=== PATIENT | male | born 1990 | race Caucasian/White ===

== ENCOUNTER 2017-02-03 18:57 | Emergency (ER) | payer SELFPAY ==
[2017-02-03] MEDS ORDERED: IPRATROPIUM-ALBUTEROL 3 ML NEB INHALATION STA (19:47)
--- NOTE | 2017-02-03 19:52 | ED ---
General Adult HPI - General Chief complaint: Shortness of Breath Stated complaint: ezekiel Time Seen by Provider: 02/03/17 19:38 Source: patient, family, RN notes reviewed, old records reviewed Mode of arrival: ambulatory - History of Present Illness Initial comments: Chief complaint and history of present illness a 26-year-old male here with his significant other. The patient reports for the past several months she's had bronchitis recurrent several times. Usually tries DayQuil at home. Sometimes when he coughs really hard develops a headache he does have history of migraines. Also musculoskeletal discomfort to the stomach muscles from frequent coughing. No associated sweats no nausea no vomiting. - Related Data Previous Rx's Medication Instructions Recorded Albuterol Inhaler [Ventolin Hfa 2 puff INHALATION Q4HR PRN #1 02/03/17 Inhaler] inhaler Azithromycin [Zithromax Z-pack] 250 mg PO DIRECTED #6 tab 02/03/17 methylPREDNISolone Dose Pack 4 mg PO DIRECTED #21 package 02/03/17 [Medrol Dose Pack] Allergies Allergy/AdvReac Type Severity Reaction Status Date / Time chocolate flavor AdvReac migraine Verified 02/03/17 20:08 Penicillins AdvReac Does not Verified 02/03/17 20:08 work for him Review of Systems ROS Statement: Those systems with pertinent positive or pertinent negative responses have been documented in the HPI. Review of systems. No headache at this time no visual acuity changes no stiff neck or sore throat he has mild anterior chest wall discomfort reproducible taking deep breath coughing or palpation. No sweats no nausea no vomiting. No complaints of abdominal pain other than above. No GI/ problems or complications no neuro deficits. All systems are reviewed Past medical problems migraines, also history of being oppositional defiant. Surgery ear tubes. Family history diabetes mellitus mother at [facility]. Patient has ALLERGIES to chocolate and penicillin. He does smoke strongly encouraged to stop does drink alcohol socially. ROS Other: All systems not noted in ROS Statement are negative. Past Medical History Additional Past Medical History / Comment(s): Migraines; Oppositional Defiant Disorder, EAR INFECTIONS History of Any Multi-Drug Resistant Organisms: None Reported Past Surgical History: Ear Surgery Additional Past Surgical History / Comment(s): Tubes Past Psychological History: ADD/ADHD, Depression Smoking Status: Current some day smoker Past Alcohol Use History: Occasional Past Drug Use History: None Reported General Exam - General Exam Comments Initial Comments: General: The patient is awake and alert, has been coughing for several days. Nonproductive. Feels somewhat short of breath. Chest wall discomfort with coughing. Vital signs are temperature 98.1 pulse 109 respiratory rate 18 pulse ox 97% room air blood pressure 140/92 Eye: Pupils are equal, round and reactive to light, extra-ocular movements are intact ; there is normal conjunctiva bilaterally. No signs of icterus. Ears, nose, mouth and throat: There are moist mucous membranes and no oral lesions. Neck: The neck is supple, there is no tenderness . Cardiovascular: There is a regular rate and rhythm. No murmur, rub or gallop is appreciated. Respiratory: Lungs are clear to auscultation, respirations are non-labored, breath sounds are equal. No wheezes, stridor, rales, or rhonchi. Nonproductive frequent cough. Gastrointestinal: Soft, non-distended, non-tender abdomen without masses or organomegaly noted. There is no rebound or guarding present. No CVA tenderness. Bowel sounds are unremarkable. Back: There is no tenderness to palpation in the midline. There is no obvious deformity. No rashes noted. Musculoskeletal: Normal ROM, no tenderness, There is no pedal edema. There is no calf tenderness or swelling. Neurological: No neuro deficits. No complaint of any headache at this time. Supplies that when he coughs repeatedly does develop a headache Skin: Skin is warm and dry and no rashes or lesions are noted. Course Vital Signs 02/03/17 02/03/17 02/03/17 19:17 20:34 20:43 Temperature 98.1 F Pulse Rate 109 H 94 96 Respiratory 18 Rate Blood Pressure 140/92 O2 Sat by Pulse 97 Oximetry Medical Decision Making - Medical Decision Making Chest x-ray was done and reviewed by radiologist both AP and lateral view. And his report is somewhat low lung volumes are present. There is no focal airspace opacity, pleural effusion or pneumothorax seen. Cardiac silhouette size within normal limits. The osseous structures are intact. Impression; poor inspiration without acute cardiopulmonary process. As read by Dr. munguia The patient be placed on Medrol Dosepak to assist with seasonal type ALLERGIES. Also be given an inhaler and azithromycin for bronchitis. Advised to follow- up with family physician. Advised to stop smoking Disposition Clinical Impression: Bronchitis with asthma, subacute Disposition: HOME SELF-CARE Condition: Fair Instructions: Asthma (ED), Acute Bronchitis (ED) Additional Instructions: Stop smoking, increase fluids. Use medications as directed. Follow-up with family physician Prescriptions: Albuterol Inhaler [Ventolin Hfa Inhaler] 2 puff INHALATION Q4HR PRN #1 inhaler PRN Reason: Shortness Of Breath Azithromycin [Zithromax Z-pack] 250 mg PO DIRECTED #6 tab methylPREDNISolone Dose Pack [Medrol Dose Pack] 4 mg PO DIRECTED #21 package Time of Disposition: 20:48
--- NOTE | 2017-02-03 20:25 | XR ---
EXAMINATION TYPE: XR chest 2V DATE OF EXAM: 02/03/2017 8:13 PM COMPARISON: Prior chest x-ray October 25, 2015. HISTORY: Cough and shortness of breath. TECHNIQUE: Frontal and lateral views of the chest are obtained. FINDINGS: Somewhat low lung volumes are present. There is no focal air space opacity, pleural effusio n, or pneumothorax seen. The cardiac silhouette size is within normal limits. The osseous structur es are intact. IMPRESSION: Poor inspiration without acute cardiopulmonary process.
[2017-02-03 21:18] VITALS: BP 117/59; PULSE 92; RESP 20; TEMP 97.9
== END 2017-02-03 21:18 | disposition home or self-care (01) ==
LOC: EC 18:57
DX: J45.909 Unspecified asthma, uncomplicated (principal); J20.9 Acute bronchitis, unspecified; R51 Headache; F17.200 Nicotine dependence, unspecified, uncomplicated; Z88.0 Allergy status to penicillin; Z91.09 Other allergy status, other than to drugs and biological substances
CPT/HCPCS: 71020; 93005; 94640; 99285

== ENCOUNTER 2017-03-23 11:31 | Emergency (ER) | payer OTHER ==
[2017-03-23] MEDS ORDERED: HYDROmorphone 1 MG/ML 1 ML SYRINGE IVP STA (11:59)
[2017-03-23] MEDS ORDERED: METOCLOPRAMIDE 5 MG/ML 2 ML VIAL IVP STA (12:00)
--- NOTE | 2017-03-23 12:09 | ED ---
General Adult HPI - General Chief complaint: Headache Stated complaint: vomiting x 2 hours Time Seen by Provider: 03/23/17 11:52 Source: patient, family, RN notes reviewed, old records reviewed Mode of arrival: ambulatory Limitations: no limitations - History of Present Illness Initial comments: chief complaint and history of present illness; patient complains of a headache which started this morning upon awakening. Nausea vomiting. Headache is behind the right eye. Long history of migraine type headaches. Last one was proximally 7 weeks ago. No new problems, no injuries or illnesses. No complaints of earaches. - Related Data Previous Rx's Medication Instructions Recorded Albuterol Inhaler [Ventolin Hfa 2 puff INHALATION Q4HR PRN #1 02/03/17 Inhaler] inhaler Azithromycin [Zithromax Z-pack] 250 mg PO DIRECTED #6 tab 02/03/17 methylPREDNISolone Dose Pack 4 mg PO DIRECTED #21 package 02/03/17 [Medrol Dose Pack] Butalb/Acetaminophen/Caffeine 1 cap PO Q4HR #10 cap 03/23/17 [Fioricet 50-300-40 mg Capsule] Ondansetron Odt [Zofran Odt] 4 mg PO Q8HR PRN #10 tab 03/23/17 Allergies Allergy/AdvReac Type Severity Reaction Status Date / Time chocolate flavor AdvReac migraine Verified 02/03/17 20:08 Penicillins AdvReac Does not Verified 02/03/17 20:08 work for him Review of Systems ROS Statement: Those systems with pertinent positive or pertinent negative responses have been documented in the HPI. review of systems. Diplopia when she started vomiting. Headache. No chest pain but had nausea vomiting rather violently. No neuro deficits. All systems are reviewed. Past medical problems migraines and oppositional defiantBehavior. Ear surgery 2 sets of ear tubes. Family history noncontributory. ALLERGIES to chocolate flavoring and penicillins. Also history of ADHD and depression. Smokes on occasion. ROS Other: All systems not noted in ROS Statement are negative. Past Medical History Additional Past Medical History / Comment(s): Migraines; Oppositional Defiant Disorder, EAR INFECTIONS History of Any Multi-Drug Resistant Organisms: None Reported Past Surgical History: Ear Surgery Additional Past Surgical History / Comment(s): Tubes Past Psychological History: ADD/ADHD, Depression Smoking Status: Current some day smoker Past Alcohol Use History: Occasional Past Drug Use History: None Reported General Exam - General Exam Comments Initial Comments: General: The patient is awake and alert, complains of nausea vomiting headache. Vital signs shows temperature 97.6 pulse 73 respiratory rate 20 pulse ox 96% room air blood pressure 138/88 Eye: Pupils are equal, round and reactive to light, extra-ocular movements are intact ; there is normal conjunctiva bilaterally. No signs of icterus. complains of double vision. Ears, nose, mouth and throat: There are moist mucous membranes and no oral lesions. Neck: The neck is supple, there is no tenderness . Cardiovascular: There is a regular rate and rhythm. No murmur, rub or gallop is appreciated. Respiratory: Lungs are clear to auscultation, respirations are non-labored, breath sounds are equal. No wheezes, stridor, rales, or rhonchi. Gastrointestinal: Soft, non-distended, non-tender abdomen without masses or organomegaly noted. There is no rebound or guarding present. No CVA tenderness. Bowel sounds are unremarkable.nausea vomiting because of the headache. Back: denies back pain, no injuries. Musculoskeletal: Normal ROM, no tenderness, There is no pedal edema. There is no calf tenderness or swelling. Sensation intact. Neurological: CN II-XII intact, There are no obvious motor or sensory deficits. Coordination appears grossly intact. Speech is normal.migraine type headache. Skin: Skin is warm and dry and no rashes or lesions are noted. Psychiatric: history of depression but no complaints of any suicidal thoughts. Limitations: no limitations Course Vital Signs 03/23/17 11:46 Temperature 97.6 F Pulse Rate 73 Respiratory 20 Rate Blood Pressure 138/88 O2 Sat by Pulse 96 Oximetry Medical Decision Making - Medical Decision Making after IV hydration and IV pain medications for nausea and resting for approximately 45 minutes to an hour the patient reports feeling much better. Rate to go home.Patient be placed on Zofran ODT and Fioricet as needed for migraine headaches in general. Advised to follow-up with family physician. Disposition Clinical Impression: Migraine headache with aura Disposition: HOME SELF-CARE Condition: Fair Instructions: Migraine Headache (ED) Additional Instructions: Follow-up family physician. Take medications as directed. Prescriptions: Butalb/Acetaminophen/Caffeine [Fioricet 50-300-40 mg Capsule] 1 cap PO Q4HR #10 cap Ondansetron Odt [Zofran Odt] 4 mg PO Q8HR PRN #10 tab PRN Reason: nausea vomiting Referrals: Michael Mckeon MD [Primary Care Provider] - 1-2 days Time of Disposition: 13:22
[2017-03-23 13:35] VITALS: BP 124/57; PULSE 64; RESP 16; TEMP 97.5
== END 2017-03-23 13:30 | disposition home or self-care (01) ==
LOC: EC 11:31
DX: G43.109 Migraine with aura, not intractable, without status migrainosus (principal); R11.2 Nausea with vomiting, unspecified; F17.200 Nicotine dependence, unspecified, uncomplicated; Z88.0 Allergy status to penicillin; Z91.018 Allergy to other foods
CPT/HCPCS: 99283; 96374; 96375; J2765; J1170

== ENCOUNTER 2018-10-02 20:16 | Emergency (ER) | payer OTHER ==
[2018-10-02 20:36] VITALS: TEMP 98.5
[2018-10-02] MEDS ORDERED: diphenhydrAMINE 50 MG/ML 1 ML VIAL IVP STA (21:19)
[2018-10-02] MEDS ORDERED: KETOROLAC 30 MG/ML 1 ML VIAL IVP STA (21:19)
[2018-10-02] MEDS ORDERED: ONDANSETRON 4 MG/2 ML VIAL IVP STA (21:20)
[2018-10-02] MEDS ORDERED: SODIUM CHLORIDE 0.9% 1,000 ML IV ONE (21:20)
--- NOTE | 2018-10-02 23:29 | CT ---
EXAMINATION TYPE: CT brain wo con DATE OF EXAM: 10/02/2018 COMPARISON: None HISTORY: [employer] CT DLP: 1282.80 mGycm. Automated Exposure Control for Dose Reduction was Utilized. TECHNIQUE: CT scan of the head is performed without contrast. FINDINGS: Ventricles of normal size. There is no mass effect nor midline shift. There is no sign of intracranial hemorrhage. Calvarium is intact. Sinuses appear normal. IMPRESSION: Negative CT scan of the brain.
--- NOTE | 2018-10-02 23:45 | CT ---
EXAMINATION TYPE: CT angio COW [facility] DATE OF EXAM: 10/02/2018 11:34 PM COMPARISON: None HISTORY: headache CT DLP: 267.50 mGycm Automated exposure control for dose reduction was used. TECHNIQUE: Performed with IV Contrast, patient injected with 65 mL of Isovue 370. . There are 3-D post processed images. FINDINGS: There is arterial flow in the vertebrobasilar artery system. There is arterial flow in the distal int ernal carotid arteries bilaterally. There is arterial flow in the anterior middle and posterior cerebral arteries bilaterally. I see no e vidence of aneurysm or neovascularity. There is no mass effect. There is no evidence of stenosis. The re is normal contrast opacification of the venous sinuses. IMPRESSION: NEGATIVE CT ANGIOGRAM OF THE BRAIN.
[2018-10-02] MEDS ORDERED: MORPHINE SULFATE 2 MG/ML SYRINGE IVP STA (23:47)
[2018-10-03] MEDS ORDERED: ACETAMINOPHEN TAB 325 MG TAB PO STA (00:32)
[2018-10-03 00:53] VITALS: BP 115/75; PULSE 72; RESP 14
--- NOTE | 2018-10-03 01:18 | ED ---
Headache HPI - General Chief Complaint: Headache Stated Complaint: Migraine Mode of arrival: ambulatory Limitations: no limitations - History of Present Illness Initial Comments: 28yo male with PMH of chronic migraines presenting to the emergency department for evaluation of migraine x 5 days. pt state that 5 days ago he developed one of his typical migraines, describing as a stabbing sensation behind his eye, "like an ice pick", he states he usually gets sensitive to all sounds, smells and light during these migraines and experiences occassional nausea and vomiting depending on the intensity. Pt state that he has not been evaluated by neurology for these migraines that he has been experiencing for years on and off. Pt states that this migraine came on gradually, increasing in intensity. He states fluctuating in intensity ranging from 10 to a 5, alleivated somewhat from ibuprofen, execedrin and tylenol. Pt denies any fever, chills, neck stiffness, ataxia, muscle weakness, sensation loss/changes, parathesias of the UE or LE, speech changes, visual changes, diplopia, or any other associated symptoms. When headache persisted this evening despite over the counter medication pt presented for treatment. pt states he has experienced significant relief with "migraine cocktail" in the past. Remainder of ROS (-), pt covering eyes with shirt, lights off. AAOx4. VS within acceptable limits. Pt states family history of brain aneursym, denies any previous CT. Pt denies this being worst headache of life. - Related Data Previous Rx's Medication Instructions Recorded Ibuprofen 800 mg PO Q8H PRN 7 Days #21 tablet 10/03/18 Allergies Allergy/AdvReac Type Severity Reaction Status Date / Time chocolate flavor AdvReac migraine Verified 10/02/18 21:09 Penicillins AdvReac Does not Verified 10/02/18 21:09 work for him Review of Systems ROS Statement: Those systems with pertinent positive or pertinent negative responses have been documented in the HPI. ROS Other: All systems not noted in ROS Statement are negative. Constitutional: Denies: fever, chills, night sweats ENT: Denies: ear pain Respiratory: Denies: cough, dyspnea Cardiovascular: Denies: chest pain, palpitations, dyspnea on exertion Gastrointestinal: Reports: nausea, vomiting. Denies: abdominal pain, diarrhea, constipation, hematemesis, melena, hematochezia Genitourinary: Denies: hematuria Musculoskeletal: Denies: back pain Skin: Denies: rash Neurological: Reports: headache. Denies: weakness, numbness, paresthesias, confusion, abnormal gait, vertigo Past Medical History Additional Past Medical History / Comment(s): Migraines; Oppositional Defiant Disorder, EAR INFECTIONS History of Any Multi-Drug Resistant Organisms: None Reported Past Surgical History: Ear Surgery Additional Past Surgical History / Comment(s): Tubes Past Psychological History: ADD/ADHD, Depression Smoking Status: Current some day smoker Past Alcohol Use History: Occasional Past Drug Use History: None Reported General Exam - General Exam Comments Initial Comments: General: The patient is awake and alert, in no distress, pt covering face with shirt when entered room, lights off Eye: +3 mm pupils are equal, round and reactive to light, extra-ocular movements are intact. Mild noted photophonia, or APD. No nystagmus. There is normal conjunctiva bilaterally. No signs of icterus. Ears, nose, mouth and throat: There are moist mucous membranes and no oral lesions. Neck: The neck is supple, there is no tenderness or JVD. Cardiovascular: There is a regular rate and rhythm. No murmur, rub or gallop is appreciated. Respiratory: Lungs are clear to auscultation, respirations are non-labored, breath sounds are equal. No wheezes, stridor, rales, or rhonchi. Musculoskeletal: Normal ROM, no tenderness. Strength 5/5. Sensation intact. Pulses equal bilaterally 2+. Neurological: A&O x 3. CN II-XII intact. There are no motor or sensory deficits. Full sensation to light touch of the UE and LE, abdomen, back and face. Coordination smooth and coordinated with hand flap and heel to raphael movements equal b//l. Speech is normal, clear to la, pa and ga sounds. Finger to nose coordinated/smooth. No pronator drift. Gait even with stride, no ataxia. No nuchal rigidity, (-) brudzinski or kernig. Memory intact. Skin: Skin is warm and dry and no rashes or lesions are noted. Psychiatric: Cooperative, appropriate mood & affect, normal judgment. Limitations: no limitations Course Vital Signs 10/02/18 10/03/18 20:32 00:52 Temperature 98.5 F Pulse Rate 100 72 Respiratory 20 14 Rate Blood Pressure 152/93 115/75 O2 Sat by Pulse 97 95 Oximetry - Reevaluation(s) Reevaluation #1: Pt states pain decreased to 3/10, stating ready to go home. Removed shirt from face, no signs of photophobia. Medical Decision Making - Medical Decision Making CT c/o and CT angio COW obtained given history of aneursym in mother, pt complaint of persistent BARRETO. (-) Imaging studies. Pt given zofran, toradol and benadryl. Resting comfortably upon multiple reexaminations. Pt stating BARRETO now 3/ 10, stating he is ready for discharge. Pt now about to take shirt from eye, no noted photophobia. No focal neurological deficits on exam. No nuchal rigidity, fever, or clinical findings concerning for meningeal irritation. No tenderness to palpation of temporal artery. At this time I feel pt is stable for discharge. I recommended both neurology and primary f/u for further evaluation and treatment of chronic migraines. Return pararmeters discussed at length with patient who verbalized understanding. Pt given RX For ibuprofen 800mg. Pt discharged in stable condition. Case discussed with Dr. Bojorquez prior to discharge, who agreed with impression and plan. Disposition Clinical Impression: Migraine Disposition: HOME SELF-CARE Condition: Good Instructions: Acute Headache (ED) Additional Instructions: Please use medication as discussed. Please follow-up with family doctor in the next 2 days, I recommend neurology referral for further evaluation and management of chronic migraines. Please return to emergency room if the symptoms increase or worsen or for any other concerns. Prescriptions: Ibuprofen 800 mg PO Q8H PRN 7 Days #21 tablet PRN Reason: Pain Is patient prescribed a controlled substance at d/c from ED?: No Referrals: None,Stated [Primary Care Provider] - 1-2 days [facility] [NON-STAFF] - 1-2 days Jaja Alejandra MD [STAFF PHYSICIAN] - 1-2 days Time of Disposition: 01:18
== END 2018-10-03 01:45 | disposition home or self-care (01) ==
LOC: EC 20:16
DX: G43.909 Migraine, unspecified, not intractable, without status migrainosus (principal); F17.200 Nicotine dependence, unspecified, uncomplicated; Z88.0 Allergy status to penicillin; Z91.02 Food additives allergy status; Z53.20 Procedure and treatment not carried out because of patient's decision for unspecified reasons
CPT/HCPCS: 70496; 70450; 99284; 96374; 96375 ×2; 96361; J1200; J2405; J1885; Q9967

== ENCOUNTER 2019-04-11 18:33 | Emergency (ER) | payer OTHER ==
[2019-04-11 19:12] VITALS: BP 123/78; PULSE 78; RESP 18; TEMP 98.4
[2019-04-11] MEDS ORDERED: ONDANSETRON 4 MG/2 ML VIAL IVP STA (19:25)
[2019-04-11] MEDS ORDERED: KETOROLAC 30 MG/ML 1 ML VIAL IVP STA (19:25)
[2019-04-11] MEDS ORDERED: diphenhydrAMINE 50 MG/ML 1 ML VIAL IVP STA (19:25)
--- NOTE | 2019-04-11 19:28 | ED ---
Headache HPI - General Chief Complaint: Headache Stated Complaint: MIGRAINE Time Seen by Provider: 04/11/19 19:16 Mode of arrival: ambulatory Limitations: no limitations - History of Present Illness Initial Comments: 28-year-old male presenting for headache. Patient states she has chronic migraines occur every 3-6 months. He states this began about 3 hours ago gradually. He states it has been increasing in intensity. Patient states may get headaches he has photophobia he sensitive to the sounds feels nauseous. He denies vomiting neck stiffness. Patient denies any fever or chills night sweats. Patient denies any weakness of the upper or lower extremities or speech changes. Patient states this feels typical of his migraines. He states usually gets this intensity he comes to emergency department for migraine cocktail and this alleviates his symptoms. Remaining review of systems negative upon arrival patient appears to be photophobic. Otherwise patient does not appear toxic. Patient is afebrile with vital signs within normal limits. - Related Data Previous Rx's Medication Instructions Recorded Ibuprofen 800 mg PO Q8H PRN 7 Days #21 tablet 10/03/18 Allergies Allergy/AdvReac Type Severity Reaction Status Date / Time chocolate flavor AdvReac migraine Verified 10/02/18 21:09 Penicillins AdvReac Does not Verified 10/02/18 21:09 work for him Review of Systems ROS Statement: Those systems with pertinent positive or pertinent negative responses have been documented in the HPI. ROS Other: All systems not noted in ROS Statement are negative. Past Medical History Additional Past Medical History / Comment(s): Migraines; Oppositional Defiant Disorder, EAR INFECTIONS History of Any Multi-Drug Resistant Organisms: None Reported Past Surgical History: Ear Surgery Additional Past Surgical History / Comment(s): Tubes Past Psychological History: ADD/ADHD, Depression Smoking Status: Current some day smoker Past Alcohol Use History: Occasional Past Drug Use History: None Reported General Exam - General Exam Comments Initial Comments: General: The patient is awake and alert, in no distress, and does not appear acutely ill. Eye: +3 mm pupils are equal, round and reactive to light, extra-ocular movements are intact. No nystagmus. There is normal conjunctiva bilaterally. No signs of icterus. Ears, nose, mouth and throat: There are moist mucous membranes and no oral lesions. Neck: The neck is supple, there is no tenderness or JVD. Cardiovascular: There is a regular rate and rhythm. No murmur, rub or gallop is appreciated. Respiratory: Lungs are clear to auscultation, respirations are non-labored, breath sounds are equal. No wheezes, stridor, rales, or rhonchi. Musculoskeletal: Normal ROM, no tenderness. Strength 5/5. Sensation intact. Pulses equal bilaterally 2+. Neurological: A&O x 3. CN II-XII intact, memory intact to immediately, intermediate and fdc recall. Able to follow simple verbal. Able to name a common object . High quality, labial (pa) and lingual (la) speech. Low quality posterior pharynx/larynx (ga) voice sounds. Able to express general knowledge. No hemineglect or inattention noted. Finger agnosia (-) and spatially oriented. Light touch and temperature sensation present over the face, chest, abdomen, back, UE bilaterally, and LE bilaterally. Able to localize point during point localization b/l and extinction. No visible bulk atrophy, hypertrophy, fasciculations, or myoclonus of the UE or LE b/l. Full PROM in UE and LE b/l. Bilateral muscle strength 5/5 for the following muscles: deltoid, biceps, triceps, brachioradialis, wrist extensors/flexor, hip flexor, hip abductors/adductors, hamstrings, quadriceps, feet dorsiflexors/plantar flexors. Finger to nose, finger to the examiners finger, and heel to raphael coordinated and accurate b/l. Coordinated and even demonstration of hand flip, finger to thumb, and toe tap b/l. Gait is coordinated and even in stride with tandem. (-) pronator drift. No nuchal rigidity. Skin: Skin is warm and dry and no rashes or lesions are noted. Psychiatric: Cooperative, appropriate mood & affect, normal judgment. Limitations: no limitations Course Vital Signs 04/11/19 19:09 Temperature 98.4 F Pulse Rate 78 Respiratory 18 Rate Blood Pressure 123/78 O2 Sat by Pulse 97 Oximetry Medical Decision Making - Medical Decision Making 28-year-old male presenting for headache. Patient states he has chronic migraines. Patient states this feels identical to previous headaches. Patient has no focal neurological deficits no fever. No nuchal rigidity. No upper respiratory symptoms. Upon reevaluation patient states headache has nearly subsided after Zofran and Toradol and Benadryl. Patient states he feels comfortable discharge at this time. Patient is instructed to follow-up with primary care provider. Return for any worsening symptoms. Patient discharged appearing well. Disposition Clinical Impression: Headache Disposition: HOME SELF-CARE Condition: Good Instructions (If sedation given, give patient instructions): Acute Headache (ED) Additional Instructions: Please use medication as discussed. Please follow-up with family doctor in the next 2 days of symptoms have not improved. Please return to emergency room if the symptoms increase or worsen or for any other concerns. Is patient prescribed a controlled substance at d/c from ED?: No Referrals: Otis Bowman MD [Primary Care Provider] - 1-2 days Time of Disposition: 20:33
[2019-04-11] MEDS ORDERED: SODIUM CHLORIDE 0.9% 1,000 ML IV ONE (19:30)
== END 2019-04-11 20:40 | disposition home or self-care (01) ==
LOC: EC 18:33
DX: R51 Headache (principal); R11.0 Nausea; H53.149 Visual discomfort, unspecified; F17.200 Nicotine dependence, unspecified, uncomplicated; Z86.69 Personal history of other diseases of the nervous system and sense organs; Z88.0 Allergy status to penicillin
CPT/HCPCS: 99283; 96374; 96375 ×2; 96361; J1200; J2405; J1885

== ENCOUNTER 2019-07-28 18:39 | Emergency (ER) | payer OTHER ==
[2019-07-28 19:04] VITALS: BP 145/103; TEMP 99.1
[2019-07-28] MEDS ORDERED: AMOXIC-POT CLAV 875MG STARTER 2 EACH TABLET PO STA (19:14)
--- NOTE | 2019-07-28 19:19 | ED ---
General Adult HPI - General Chief complaint: Upper Respiratory Infection Stated complaint: SINUS INFECTION Time Seen by Provider: 07/28/19 19:04 Source: patient Mode of arrival: ambulatory Limitations: no limitations - History of Present Illness Initial comments: Patient is a 29-year-old male presenting to emergency Department with a chief complaint of a URI. Patient reports he developed symptoms over a week ago. Patient reports it initially started with a sore throat with sinus congestion and a sense progressed to a nonproductive cough. Patient denies otalgia but does report headaches after coughing fits. Patient denies any nausea vomiting or diarrhea. Patient denies any fevers, night sweats or chills. Patient reports taking nondrowsy Benadryl with minimal improvement. Patient does report yellow nasal discharge bilaterally. - Related Data Previous Rx's Medication Instructions Recorded Ibuprofen 800 mg PO Q8H PRN 7 Days #21 tablet 10/03/18 Amoxicillin/Potassium Clav 1 tab PO Q12HR #14 tab 07/28/19 [Augmentin 875-125 Tablet] Oxymetazoline 0.05% Nasl [place] 2 spray EA NOSTRIL BID #1 bottle 07/28/19 [Afrin 0.05% Nasal [place]] Allergies Allergy/AdvReac Type Severity Reaction Status Date / Time chocolate flavor AdvReac migraine Verified 10/02/18 21:09 Penicillins AdvReac Does not Verified 10/02/18 21:09 work for him Review of Systems ROS Statement: Those systems with pertinent positive or pertinent negative responses have been documented in the HPI. ROS Other: All systems not noted in ROS Statement are negative. Past Medical History Additional Past Medical History / Comment(s): Migraines; Oppositional Defiant Disorder, EAR INFECTIONS History of Any Multi-Drug Resistant Organisms: None Reported Past Surgical History: Ear Surgery Additional Past Surgical History / Comment(s): Tubes Past Psychological History: ADD/ADHD, Depression Smoking Status: Never smoker Past Alcohol Use History: Occasional Past Drug Use History: None Reported General Exam Limitations: no limitations General appearance: alert, in no apparent distress Head exam: Present: atraumatic, normocephalic, normal inspection Eye exam: Present: normal appearance, PERRL, EOMI Pupils: Present: normal accommodation ENT exam: Present: normal exam, normal oropharynx (No tonsillar enlargement.), mucous membranes moist, TM's normal bilaterally, normal external ear exam, other (Maxillary and frontal sinus tenderness.) Neck exam: Present: normal inspection, full ROM. Absent: tenderness, lymphadenopathy Respiratory exam: Present: normal lung sounds bilaterally. Absent: wheezes Cardiovascular Exam: Present: regular rate, normal rhythm, normal heart sounds Extremities exam: Present: normal inspection, full ROM Back exam: Present: normal inspection, full ROM Neurological exam: Present: alert, oriented X3 Psychiatric exam: Present: normal affect, normal mood Skin exam: Present: warm, intact, normal color Course Vital Signs 07/28/19 19:01 Temperature 99.1 F Pulse Rate 77 Respiratory 18 Rate Blood Pressure 145/103 O2 Sat by Pulse 97 Oximetry Medical Decision Making - Medical Decision Making Patient is a 29-year-old male presenting to the emergency department with a chief complaint of a URI. Patient has had a sore throat and sinus congestion for over a week. Patient also has a nonproductive cough but no wheezing. Patient has had no fever. Patient has yellow discharge. Based on physical examination patient does appear to have maxillary and frontal sinus tenderness. I suspect the patient to have sinusitis and considering that it has been over a week of symptoms. Abdomen treat the patient with Augmentin. Patient also prescribed Afrin for symptomatically relief. Strict return parameters were thoroughly discussed with patient is understanding and agreeable. Case discussed with physician. Disposition Clinical Impression: Sinusitis Disposition: HOME SELF-CARE Condition: Stable Instructions (If sedation given, give patient instructions): Upper Respiratory Infection (ED) Additional Instructions: Please take prescribed medication as directed. Please return to emergency department if symptoms worsen. Prescriptions: Oxymetazoline 0.05% Nasl [place] [Afrin 0.05% Nasal [place]] 2 spray EA NOSTRIL BID #1 bottle Amoxicillin/Potassium Clav [Augmentin 875-125 Tablet] 1 tab PO Q12HR #14 tab Is patient prescribed a controlled substance at d/c from ED?: No Referrals: Otis Bowman MD [Primary Care Provider] - 1-2 days Time of Disposition: 19:19
[2019-07-28 19:36] VITALS: PULSE 83; RESP 16
== END 2019-07-28 19:36 | disposition home or self-care (01) ==
LOC: EC 18:39
DX: J32.9 Chronic sinusitis, unspecified (principal); Z88.0 Allergy status to penicillin; Z91.018 Allergy to other foods
CPT/HCPCS: 99283

== ENCOUNTER 2019-11-02 07:29 | Emergency (ER) | payer OTHER ==
[2019-11-02 07:40] VITALS: RESP 18; TEMP 98.6
--- NOTE | 2019-11-02 07:57 | ED ---
General Adult HPI - General Chief complaint: Upper Respiratory Infection Stated complaint: SOB, fever Time Seen by Provider: 11/02/19 07:40 Source: patient, RN notes reviewed, old records reviewed Mode of arrival: ambulatory Limitations: no limitations - History of Present Illness Initial comments: 29-year-old male presenting for evaluation of cough, fever, myalgia. Patient's states he's had symptoms for 48 hours, symptoms beginning 2 days prior to evaluation. His was diagnosed with influenza as well as pneumonia. Is concerned that he has developed same infection. He's had some yellow-green sputum. Some mild dyspnea with his cough. His had some nausea, no vomiting. He's had myalgias and fever and chills. He Is otherwise healthy. No history of asthma. - Related Data Previous Rx's Medication Instructions Recorded Ibuprofen 800 mg PO Q8H PRN 7 Days #21 tablet 10/03/18 Amoxicillin/Potassium Clav 1 tab PO Q12HR #14 tab 07/28/19 [Augmentin 875-125 Tablet] Oxymetazoline 0.05% Nasl [place] 2 spray EA NOSTRIL BID #1 bottle 07/28/19 [Afrin 0.05% Nasal [place]] Allergies Allergy/AdvReac Type Severity Reaction Status Date / Time chocolate flavor AdvReac migraine Verified 11/02/19 07:35 Penicillins AdvReac Does not Verified 11/02/19 07:35 work for him Review of Systems ROS Statement: Those systems with pertinent positive or pertinent negative responses have been documented in the HPI. ROS Other: All systems not noted in ROS Statement are negative. Past Medical History Additional Past Medical History / Comment(s): Migraines; Oppositional Defiant Disorder, EAR INFECTIONS History of Any Multi-Drug Resistant Organisms: None Reported Past Surgical History: Ear Surgery Additional Past Surgical History / Comment(s): Tubes Past Psychological History: ADD/ADHD, Depression Smoking Status: Never smoker Past Alcohol Use History: Occasional Past Drug Use History: None Reported General Exam Limitations: no limitations General appearance: alert, in no apparent distress Head exam: Present: atraumatic, normocephalic Eye exam: Present: normal appearance, PERRL, EOMI ENT exam: Present: normal exam, normal oropharynx, mucous membranes moist Neck exam: Present: normal inspection. Absent: tenderness, meningismus Respiratory exam: Present: normal lung sounds bilaterally. Absent: respiratory distress, wheezes, rales, rhonchi Cardiovascular Exam: Present: regular rate, normal rhythm GI/Abdominal exam: Present: soft. Absent: distended, tenderness, guarding, rebound Extremities exam: Present: normal inspection, normal capillary refill. Absent: pedal edema Back exam: Present: normal inspection Neurological exam: Present: alert, oriented X3, CN II-XII intact. Absent: motor sensory deficit Psychiatric exam: Present: normal affect, normal mood Skin exam: Present: warm, dry, intact. Absent: cyanosis, diaphoretic Course Vital Signs 11/02/19 11/02/19 07:36 08:15 Temperature 98.6 F Pulse Rate 77 Respiratory 18 18 Rate Blood Pressure 137/87 O2 Sat by Pulse 96 Oximetry Medical Decision Making - Medical Decision Making 29-year-old male with cough congestion. Patient is afebrile, well-appearing, lungs clear to auscultation with no respiratory distress. His stable vitals. X-rays obtained which is negative for focal pneumonia, influenza testing is obtained, negative Will treat symptoms at home, maintain hydration, Tylenol Motrin for pain and fever. - Lab Data Lab Results 11/02/19 Range/Units 07:55 Influenza Type A RNA Not Detected (Not Detectd) Influenza Type B (PCR) Not Detected (Not Detectd) Disposition Clinical Impression: Influenza Disposition: HOME SELF-CARE Condition: Good Instructions (If sedation given, give patient instructions): Upper Respiratory Infection (ED) Is patient prescribed a controlled substance at d/c from ED?: No Referrals: Otis Bowman MD [Primary Care Provider] - 1-2 days Time of Disposition: 08:37
--- NOTE | 2019-11-02 08:16 | XR ---
EXAMINATION TYPE: XR chest 2V DATE OF EXAM: 11/02/2019 COMPARISON: 02/03/2017 HISTORY: Fever and cough with flulike symptoms TECHNIQUE: Frontal and lateral views of the chest are obtained. FINDINGS: There is no focal air space opacity, pleural effusion, or pneumothorax seen. The cardiac silhouette size is within normal limits. The osseous structures are intact. IMPRESSION: No acute cardiopulmonary process.
[2019-11-02 09:02] VITALS: BP 132/78; PULSE 72
== END 2019-11-02 08:50 | disposition home or self-care (01) ==
LOC: EC 07:29
DX: J11.1 Influenza due to unidentified influenza virus with other respiratory manifestations (principal); Z88.0 Allergy status to penicillin; Z91.02 Food additives allergy status
CPT/HCPCS: 71046; 87502; 99285

== ENCOUNTER 2020-04-21 20:22 | Emergency (ER) | payer OTHER ==
[2020-04-21] MEDS ORDERED: KETOROLAC 30 MG/ML 1 ML VIAL IVP STA (20:56)
[2020-04-21] MEDS ORDERED: diphenhydrAMINE 50 MG/ML 1 ML VIAL IVP STA (20:57)
[2020-04-21] MEDS ORDERED: METOCLOPRAMIDE 5 MG/ML 2 ML VIAL IVP STA (20:57)
[2020-04-21] MEDS ORDERED: SODIUM CHLORIDE 0.9% 1,000 ML IV STA (21:15)
--- NOTE | 2020-04-21 21:49 | ED ---
Headache HPI - General Chief Complaint: Headache Stated Complaint: Migraine Time Seen by Provider: 04/21/20 20:49 Mode of arrival: ambulatory Limitations: no limitations - History of Present Illness Initial Comments: Patient is a 29-year-old male with history of migraines presenting to the emergency department with a chief complaint of a migraine. Patient reports he developed a headache about 5 days ago which she has not been able to control it with [id number] analgesics. Patient reports taking Imitrex without much improvement in symptoms. Patient states this was a gradual onset of headache and is not the worst headache of his life. 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 Denies any visual disturbances, one- sided weakness or paresthesias. Denies frontal or maxillary sinus tenderness. Denies any neck stiffness, night sweats fevers or chills. Reports she has been in the emergency department multiple times for a migraine cocktail. Does report photosensitivity and nausea but no vomiting yet. - Related Data Previous Rx's Medication Instructions Recorded Ibuprofen 800 mg PO Q8H PRN 7 Days #21 tablet 10/03/18 Amoxicillin/Potassium Clav 1 tab PO Q12HR #14 tab 07/28/19 [Augmentin 875-125 Tablet] Oxymetazoline 0.05% Nasl [place] 2 spray EA NOSTRIL BID #1 bottle 07/28/19 [Afrin 0.05% Nasal [place]] Allergies Allergy/AdvReac Type Severity Reaction Status Date / Time chocolate flavor AdvReac migraine Verified 04/21/20 20:39 Penicillins AdvReac Does not Verified 04/21/20 20:39 work for him Review of Systems ROS Statement: Those systems with pertinent positive or pertinent negative responses have been documented in the HPI. ROS Other: All systems not noted in ROS Statement are negative. Past Medical History Additional Past Medical History / Comment(s): Migraines; Oppositional Defiant Disorder, EAR INFECTIONS History of Any Multi-Drug Resistant Organisms: None Reported Past Surgical History: Ear Surgery Additional Past Surgical History / Comment(s): Tubes Past Psychological History: ADD/ADHD, Depression Smoking Status: Never smoker Past Alcohol Use History: Occasional Past Drug Use History: None Reported General Exam Limitations: no limitations General appearance: alert, in no apparent distress, obese Head exam: Present: atraumatic, normocephalic, normal inspection Eye exam: Present: normal appearance, PERRL, EOMI. Absent: scleral icterus, conjunctival injection, nystagmus, periorbital swelling, periorbital tenderness Pupils: Present: normal accommodation ENT exam: Present: normal exam, normal oropharynx, mucous membranes moist Neck exam: Present: normal inspection, full ROM. Absent: tenderness, meningismus Respiratory exam: Present: normal lung sounds bilaterally. Absent: respiratory distress, wheezes Cardiovascular Exam: Present: regular rate, normal rhythm, normal heart sounds Extremities exam: Present: normal inspection, full ROM, normal capillary refill Back exam: Present: normal inspection, full ROM. Absent: tenderness Neurological exam: Present: alert, oriented X3, CN II-XII intact, normal gait Psychiatric exam: Present: normal affect, normal mood Skin exam: Present: warm, dry, intact, normal color Course Vital Signs 04/21/20 20:37 Temperature 98.3 F Pulse Rate 70 Respiratory 16 Rate Blood Pressure 125/87 O2 Sat by Pulse 97 Oximetry Medical Decision Making - Medical Decision Making Patient is 29-year-old male with history of migraines presenting to emergency Department with a chief complaint of a migraine. Neurological examination is unremarkable. Gradual onset headache and not the worse headache of his life. Patient given fluids, Reglan, Benadryl and Toradol. On reevaluation patient reports improvement in symptoms. Return parameters thoroughly discussed the patient was understanding and agreeable. Case discussed with physician. Disposition Clinical Impression: Headache Disposition: HOME SELF-CARE Condition: Stable Instructions (If sedation given, give patient instructions): Acute Headache (ED) Additional Instructions: Follow-up with your neurologist. Return to emergency department if symptoms worsen. Is patient prescribed a controlled substance at d/c from ED?: No Referrals: None,Stated [Primary Care Provider] - 1-2 days Time of Disposition: 21:49
[2020-04-21 22:15] VITALS: BP 120/82; PULSE 71; RESP 17; TEMP 98.1
== END 2020-04-21 22:18 | disposition home or self-care (01) ==
LOC: EC 20:22
DX: G43.909 Migraine, unspecified, not intractable, without status migrainosus (principal); Z88.0 Allergy status to penicillin; Z91.018 Allergy to other foods
CPT/HCPCS: 99283; 96374; 96375 ×2; J1200; J2765; J1885

== ENCOUNTER 2020-11-06 13:05 | Emergency (ER) | payer OTHER ==
[2020-11-06 13:12] VITALS: TEMP 98.8
--- NOTE | 2020-11-06 13:22 | ED ---
General Adult HPI - General Chief complaint: Upper Respiratory Infection Stated complaint: Cough Time Seen by Provider: 11/06/20 13:13 Source: patient, RN notes reviewed Limitations: no limitations - History of Present Illness Initial comments: Patient is a pleasant 30-year-old male presenting to the emergency department with concerns for cough and fatigue. Onset of symptoms was around 3 days ago. Patient does have dry cough. Patient does feel short of breath. Patient is having subjective fevers, chills myalgias and fatigue. Patient has sinus congestion. Patient unclear whether or not he is having loss of taste or smell. No leg pain or leg swelling. - Related Data Previous Rx's Medication Instructions Recorded Ibuprofen 800 mg PO Q8H PRN 7 Days #21 tablet 10/03/18 Amoxicillin/Potassium Clav 1 tab PO Q12HR #14 tab 07/28/19 [Augmentin 875-125 Tablet] Oxymetazoline 0.05% Nasl [place] 2 spray EA NOSTRIL BID #1 bottle 07/28/19 [Afrin 0.05% Nasal [place]] Allergies Allergy/AdvReac Type Severity Reaction Status Date / Time chocolate flavor AdvReac migraine Verified 11/06/20 13:12 Penicillins AdvReac Does not Verified 11/06/20 13:12 work for him Review of Systems ROS Statement: Those systems with pertinent positive or pertinent negative responses have been documented in the HPI. ROS Other: All systems not noted in ROS Statement are negative. Constitutional: Reports: fever, chills Eyes: Denies: eye pain ENT: Denies: ear pain Respiratory: Reports: cough, dyspnea Cardiovascular: Denies: chest pain Endocrine: Reports: fatigue Gastrointestinal: Denies: abdominal pain Genitourinary: Denies: dysuria Musculoskeletal: Denies: back pain Skin: Denies: rash Neurological: Denies: confusion Past Medical History Additional Past Medical History / Comment(s): Migraines; Oppositional Defiant Disorder, EAR INFECTIONS History of Any Multi-Drug Resistant Organisms: None Reported Past Surgical History: Ear Surgery Additional Past Surgical History / Comment(s): Tubes Past Psychological History: ADD/ADHD, Depression Smoking Status: Former smoker Past Alcohol Use History: Occasional Past Drug Use History: None Reported General Exam Limitations: no limitations General appearance: alert, in no apparent distress Head exam: Present: atraumatic Eye exam: Present: normal appearance Neck exam: Present: normal inspection. Absent: lymphadenopathy Respiratory exam: Present: normal lung sounds bilaterally Cardiovascular Exam: Present: regular rate, normal rhythm GI/Abdominal exam: Present: soft. Absent: tenderness Extremities exam: Present: normal inspection. Absent: pedal edema, calf tenderness Neurological exam: Present: alert Psychiatric exam: Present: normal affect, normal mood Skin exam: Present: normal color Course Vital Signs 11/06/20 11/06/20 13:08 13:54 Temperature 98.8 F Pulse Rate 85 Respiratory 20 20 Rate Blood Pressure 161/98 O2 Sat by Pulse 95 Oximetry - Reevaluation(s) Reevaluation #1: 11/06/20 13:24 perc negative Medical Decision Making - Medical Decision Making Patient reevaluated and updated. Patient is made aware that there is still concern for possible coronavirus infection despite negative test and is recommended reevaluation and repeat testing and to return if symptoms worsen. - Lab Data Lab Results 11/06/20 11/06/20 Range/Units 13:56 13:56 Coronavirus (PCR) Not Detected (Not Detectd) Influenza Type A RNA Not Detected (Not Detectd) Influenza Type B (PCR) Not Detected (Not Detectd) - Radiology Data Radiology results: image reviewed (Chest x-ray shows no acute process) Disposition Clinical Impression: Viral infection Disposition: HOME SELF-CARE Condition: Stable Instructions (If sedation given, give patient instructions): Upper Respiratory Infection (ED) Additional Instructions: Please follow-up with primary care physician in the next couple days for recheck. It is still possible to have rotavirus infection despite negative test. Consider repeat testing. Self quarantined. Return for difficulty breathing, vomiting, uncontrolled fevers, worsening symptoms or other concerns. [id number] Tylenol or Motrin if needed for fever. [id number] vitamin D, vitamin C, and zinc. Is patient prescribed a controlled substance at d/c from ED?: No Referrals: Umm Romo III, MD [STAFF PHYSICIAN] - 1-2 days Time of Disposition: 14:52
--- NOTE | 2020-11-06 13:34 | XR ---
EXAMINATION TYPE: XR chest 2V DATE OF EXAM: 11/06/2020 COMPARISON: 11/02/2019 HISTORY: 30-year-old male cough and dyspnea, shortness of breath TECHNIQUE: PA and lateral views FINDINGS: The cardiomediastinal silhouette, aorta, and pulmonary vasculature are within normal limits. Lungs an d pleural spaces are clear. IMPRESSION: No acute cardiopulmonary process.
[2020-11-06 15:12] VITALS: BP 129/81; PULSE 95; RESP 18
== END 2020-11-06 15:29 | disposition home or self-care (01) ==
LOC: EC 13:05
DX: B34.9 Viral infection, unspecified (principal); Z20.828 Contact with and (suspected) exposure to other viral communicable diseases; Z88.0 Allergy status to penicillin; Z91.018 Allergy to other foods; Z87.891 Personal history of nicotine dependence
CPT/HCPCS: 71046; 87502; 87635; 99285

== ENCOUNTER → 2022-02-20 | Outpatient (CLI) | payer OTHER ==
--- NOTE | 2022-02-20 17:14 | CONS ---
CONSULTATION DATE OF SERVICE: 02/20/2022 This 31-year-old gentleman has been evaluated in [facility] for obstructive sleep apnea-hypopnea syndrome. HISTORY OF PRESENT ILLNESS/SLEEP-WAKE EVALUATION: Patient was diagnosed with obstructive sleep apnea in 2019, but at that time he was not able to get treatment for different reasons. At present, his sleep schedule is from midnight until 8 a.m. on weekdays and from midnight or 1 a.m. until 9 a.m. on weekends. He does have problems with falling asleep, although no TV in bedroom. He sleeps in different positions with loud snoring and witnessed episodes of stopped breathing during sleep. He wakes up from sleep 3 times, with one episode of nocturia. No unusual movements during sleep. No history of hypnagogic hallucinations, sleep paralysis or cataplexy. During the day he may take a nap between 1 and 3 p.m. [place] Sleepiness Scale is 9. In the morning the patient wakes up tired, has problems with memory, concentration, depression. PAST MEDICAL HISTORY: Positive for acid reflux, ear infection many years ago, depression. PAST SURGICAL HISTORY: Tubes in the ears many years ago. CURRENT MEDICATIONS: Omeprazole on a p.r.n. basis. SOCIAL HISTORY: Positive for smoking for about 14 pack/years; quit in 2019. Alcohol consumption occasional. FAMILY HISTORY: Positive for sleep apnea, headaches, diabetes, mental illness, brain aneurysm. REVIEW OF SYSTEMS: Sleepiness during the day, multiple awakenings from sleep. No fevers. No double vision. No recent chest pain. No shortness of breath. No abdominal pain. No bleeding episodes. No blood in the urine. No seizure episodes. PHYSICAL EXAMINATION: GENERAL: Pleasant gentleman without distress. VITAL SIGNS: BP 138/84, HR 87, RR 18, height 6 feet 0 inches, weight 339.8 pounds, body mass index 45.9, temperature 97.6, oxygen saturation at room air 98%. HEENT: PERRLA, EOMI, evaluation of oropharynx showed tongue protrudes midline. Extremely low position of soft palate; Mallampati IV. NECK: Supple, no JVD. Thyroid is not palpable. Neck is wide, measuring 21-3/4 inches in circumference. LUNGS: Clear to percussion and to auscultation. Good air exchange. No wheezing or rhonchi. HEART: S1, S2 regular. No murmurs, gallops, or rubs. ABDOMEN: Obese. EXTREMITIES: No clubbing or cyanosis. MANAGER BUSINESS PLANNING: Awake, alert, and oriented X3. Cranial nerves 2 to 7 intact. There is no fasciculation or atrophy. noted. No focal deficits observed. IMPRESSION: 1. Loud snoring, witnessed episodes of stopped breathing during sleep, multiple awakenings from sleep; obstructive sleep apnea-hypopnea syndrome. 2. History of depression. 3. Insomnia. 4. Acid reflux. 5. Episodes of headaches. 6. Obesity; BMI 45.9. PLAN: 1. Polysomnography for evaluation of patient's breathing during sleep. 2. CPAP/BiPAP titration if sleep study confirms obstructive sleep apnea-hypopnea syndrome. 3. Preferable position during sleep on the side. 4. No driving if patient feels any sleepiness. 5. I will see patient for follow up visit to explain results of testing and following plan. Thank you very much for referring this patient for consultation. Sincerely, Chris Corea MD, PhD, FAASM Diplomat of [employer] Sleep Medicine Board of [employer] Commercial Loan Analyst of [facility] [place] MMODL / IJN: [id number] /
== END ==
LOC: SLEEP 14:58
PROVIDERS: ATTEND Internal Medicine
DX: G47.33 Obstructive sleep apnea (adult) (pediatric) (principal); F32.A Depression, unspecified; K21.9 Gastro-esophageal reflux disease without esophagitis; E66.9 Obesity, unspecified; Z68.42 Body mass index [BMI] 45.0-49.9, adult; F17.210 Nicotine dependence, cigarettes, uncomplicated; Z88.0 Allergy status to penicillin; Z91.018 Allergy to other foods
CPT/HCPCS: 99211

== ENCOUNTER → 2022-10-31 | Outpatient (CLI) | payer OTHER ==
--- NOTE | 2022-10-31 11:19 | P.PN ---
Subjective DATE: 10/31/2022 FOLLOW UP VISIT. Patient with obstructive sleep apnea hypopnea syndrome return to sleep center for follow-up visit. Recently patient had sleep study which documented obstructive sleep apnea hypopnea syndrome. Patient was initiated on PAP therapy and today is first visit after treatment was started. Patient was able to use PAP equipment every night for the whole night. I explained results of home sleep apnea test and titration to the patient in details. He has severe sleep apnea, treatment is necessary. The patient does not have significant problems with the mask, PAP pressure and humidification. Patient sleeps better and feel better during the day after starting CPAP. [place] sleepiness scale is 4, which is normal. I checked information from PAP unit. PAP unit pressure 5-15, average 13.1 cm H2O. Usage is 97% and 77 % for more then 4 hours, average 6 hours per night. Leak is increased to 48.8 l/m, but patient doesn't feel any problems related to leak. Apnea Hypopnea Index is 3.4, which is normal. MEDICATIONS:1. Omeprazole During physical exam: GENERAL: A pleasant patient without any distress. VITAL SIGNS: BP 136/84, HR 78, RR 18 , weight 344.4, temperature 97.2, oxygen saturation at room air 98% . HEENT: PERRLA, EOMI.low position of soft palate, Mallapati 4 . NECK: Supple. No JVD. LUNGS: Clear to percussion and to auscultation. Good air exchange. No wheezing or rhonchi. HEART: S1, S2 regular. ABDOMEN: Soft and nontender. Obese EXTREMITIES: No clubbing or cyanosis. 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 No focal deficit. Impressions: 1. Obstructive sleep apnea-hypopnea syndrome in severe range. Apnea hypopnea index of by results of home sleep apnea test 52 with oxygen desaturation to 72%. Patient demonstrated good compliance with treatment, benefiting from treatment. 2. Obesity. 3. History of depression. 4. Acid reflux. 5. History of episodes of headaches. Plan: 1. Continue using PAP equipment every night for the whole night. 2. To change air filter at least 1-2 times per month. 3. PAP unit should stay lower then position of the head. 4. Advised patient to remove all remaining water from humidifier canister daily and make it dry after each usage. Refill canister with fresh distilled water before each usage. 5. Sleep hygiene with regular time in bed for at least 8 hours. 6. Precautions related to driving. No driving if feel any sleepiness. 7. I will maintain prescription for PAP supplies including mask, tube, filters. 8. Follow up visit in 6 months or earlier if patient has any problems. 9. Watching and losing weight. Thank you very much for allowing me to participate in the management of your patient. Chris Corea MD, PhD, FAASM. Diplomat of [employer], Sleep Medicine Board by [employer] Interventionist of [facility] [place]
== END ==
LOC: SLEEP 10:16
PROVIDERS: ATTEND Internal Medicine
DX: G47.33 Obstructive sleep apnea (adult) (pediatric) (principal); E66.9 Obesity, unspecified; K21.9 Gastro-esophageal reflux disease without esophagitis; Z86.59 Personal history of other mental and behavioral disorders; Z86.69 Personal history of other diseases of the nervous system and sense organs; Z88.0 Allergy status to penicillin; Z91.018 Allergy to other foods
CPT/HCPCS: 99212

== ENCOUNTER → 2023-06-05 | Outpatient (CLI) | payer OTHER ==
--- NOTE | 2023-06-05 10:44 | P.PN ---
Subjective DATE: 06/05/2023 FOLLOW UP VISIT. Patient with obstructive sleep apnea hypopnea syndrome return to sleep center for follow-up visit. Information from previous visit have been reviewed. Patient is using PAP equipment every night for the whole night, getting PAP supplies in time. The patient does not have significant problems with the mask, PAP unit and humidification. [place] sleepiness scale is, which is normal. I checked information from PAP unit. PAP unit pressure 5-15, average 12.0 cm H2O. Usage is 100% and 70 % for more then 4 hours, average 5 hours per night. Leak is increased to 50.8 l/m. Apnea Hypopnea Index is 3.8, which is normal. MEDICATIONS: None During physical exam: GENERAL: A pleasant patient without any distress. VITAL SIGNS: BP 142/91, HR 72, RR 18 , weight 345.4, temperature 98.6, oxygen saturation at room air 97 % . HEENT: PERRLA, EOMI.low position of soft palate, Mallapati 4 . NECK: Supple. No JVD. LUNGS: Clear to percussion and to auscultation. Good air exchange. No wheezing or rhonchi. HEART: S1, S2 regular. ABDOMEN: Soft and nontender. Obese EXTREMITIES: No clubbing or cyanosis. ELECTRICIAN'S HELPER: Awake, alert, and oriented x3. No focal deficit. Impressions: 1. Obstructive sleep apnea-hypopnea syndrome. Patient demonstrated good compliance with treatment, benefiting from treatment. 2. Obesity. 3. Acid reflux. 4. History of depression. 5. History of episodes of headaches. Plan: 1. Continue using PAP equipment every night for the whole night. 2. To change air filter at least 1-2 times per month. 3. PAP unit should stay lower then position of the head. 4. Advised patient to remove all remaining water from humidifier canister daily and make it dry after each usage. Refill canister with fresh distilled water before each usage. 5. Sleep hygiene with regular time in bed for at least 8 hours. 6. Precautions related to driving. No driving if feel any sleepiness. 7. I will maintain prescription for PAP supplies including mask, tube, filters. 8. Watching and losing weight. 9. Follow up visit in 6 months or earlier if patient has any problems. Thank you very much for allowing me to participate in the management of your patient. Chris Corea MD, PhD, FAASM. Diplomat of [employer], Sleep Medicine Board by [employer] Accounts Receivable Analyst of [facility] [place]
== END ==
LOC: 3 N SLEEP 10:22
PROVIDERS: ATTEND Internal Medicine
DX: G47.33 Obstructive sleep apnea (adult) (pediatric) (principal); K21.9 Gastro-esophageal reflux disease without esophagitis; E66.9 Obesity, unspecified; F32.A Depression, unspecified; R51.9 Headache, unspecified; Z99.89 Dependence on other enabling machines and devices; Z91.018 Allergy to other foods; Z88.0 Allergy status to penicillin; Z79.82 Long term (current) use of aspirin
CPT/HCPCS: 99212

== ENCOUNTER → 2023-12-11 | Outpatient (CLI) | payer OTHER ==
--- NOTE | 2023-12-11 11:09 | P.PN ---
Subjective DATE: 12/11/2023 FOLLOW UP VISIT. Patient with obstructive sleep apnea hypopnea syndrome return to sleep center for follow-up visit. Information from previous visit have been reviewed. Patient is using PAP equipment every night for the whole night, getting PAP supplies in time. The patient does not have significant problems with the mask, PAP unit and humidification. [place] sleepiness scale is 5, which is normal. I checked information from PAP unit. PAP unit pressure 5-15, average 8.0 cm H2O. Usage is 100% and 93 % for more then 4 hours, average 7 hours per night. Leak is high 69.7 l/m, patient is using full face mask has beer and mustache. Apnea Hypopnea Index is slightly increased to 6.2, during previous visit 3.8. MEDICATIONS: None During physical exam: GENERAL: A pleasant patient without any distress. VITAL SIGNS: BP 133/84, HR 80, RR 18 , weight 336.0, temperature 98.3, oxygen saturation at room air 97 % . HEENT: PERRLA, EOMI.low position of soft palate, Mallapati 4 . NECK: Supple. No JVD. LUNGS: Clear to percussion and to auscultation. Good air exchange. No wheezing or rhonchi. HEART: S1, S2 regular. ABDOMEN: Soft and nontender. Obese EXTREMITIES: No clubbing or cyanosis. PIPE COVERER HELPER: Awake, alert, and oriented x3. No focal deficit. Impressions: 1. Obstructive sleep apnea-hypopnea syndrome. Patient demonstrated great compliance with treatment, benefiting from treatment. 2. Obesity, patient lost 9 pounds comparing to the previous visit. 3. History of depression. 4. History of episodes of headaches. 5. Acid reflux. Plan: 1. Continue using PAP equipment every night for the whole night. 2. To change air filter at least 1-2 times per month. 3. PAP unit should stay lower then position of the head. 4. Advised patient to remove all remaining water from humidifier canister daily and make it dry after each usage. Refill canister with fresh distilled water be fore each usage. 5. Sleep hygiene with regular time in bed for at least 8 hours. 6. Precautions related to driving. No driving if feel any sleepiness. 7. I will maintain prescription for PAP supplies including mask, tube, filters. 8. Follow up visit in 6 months or earlier if patient has any problems. 9. Watching and continue losing weight. Thank you very much for allowing me to participate in the management of your patient. Chris Corea MD, PhD, FAASM. Diplomat of [employer], Sleep Medicine Board by [employer] Serologist of [facility] [place]
== END ==
LOC: 3 N SLEEP 10:04
PROVIDERS: ATTEND Internal Medicine
DX: G47.33 Obstructive sleep apnea (adult) (pediatric) (principal); E66.9 Obesity, unspecified; K21.9 Gastro-esophageal reflux disease without esophagitis; F32.A Depression, unspecified; Z86.69 Personal history of other diseases of the nervous system and sense organs; Z99.89 Dependence on other enabling machines and devices; Z91.018 Allergy to other foods; Z88.0 Allergy status to penicillin; Z79.82 Long term (current) use of aspirin
CPT/HCPCS: 99212